=== PATIENT | male | born 1950 | race Caucasian/White ===

== ENCOUNTER 2018-02-07 13:18 | Emergency (ER) | payer MEDICARE, OTHER ==
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
[2018-02-07 14:44] VITALS: BP 168/90; PULSE 78; O2SAT 98
== END 2018-02-07 14:43 | disposition home or self-care (01) ==
LOC: ED 13:18
DX: S13.9XXA Sprain of joints and ligaments of unspecified parts of neck, initial encounter (principal); S33.9XXA Sprain of unspecified parts of lumbar spine and pelvis, initial encounter; V53.5XXA Driver of pick-up truck or van injured in collision with car, pick-up truck or van in traffic accident, initial encounter; M54.2 Cervicalgia; M54.5 Low back pain
CPT/HCPCS: 72125; 72131; 93005; 99283

== ENCOUNTER 2023-03-11 12:31 | Emergency (ER) | payer MEDICARE ==
[2023-03-11] MEDS ORDERED: SODIUM BICARBONATE 50 MEQ/50 ML ABBOJECT IV ONE (12:32)
[2023-03-11] MEDS ORDERED: Magnesium Sulfate 1 GM/2 ML VIAL IV ONE (12:32)
[2023-03-11] MEDS ORDERED: XYLOCAINE 2% HCL 20 ML MDV IJ ONE (12:32)
[2023-03-11] MEDS ORDERED: EPINEPHRINE ABBOJECT 1 MG/10 ML IV ONE ×2 (12:32)
[2023-03-11] MEDS ORDERED: XYLOCAINE 100 MG/5 ML ABBOJECT IV ONE (12:32)
[2023-03-11] MEDS ORDERED: Sodium Bicarbonate 50 MEQ/50 ML VIAL IV ONE (12:38)
[2023-03-11] MEDS ORDERED: MAGNESIUM SULF 2 G/50 ML BAG 2 GM/50 ML PIGGYBACK IV ONE (12:39)
--- NOTE | 2023-03-11 14:36 | ERPHSYRPT ---
- History of Present Illness Time Seen by Provider: 03/11/23 12:52 Source: family, EMS Exam Limitations: clinical condition Patient Subjective Stated Complaint: Cardiac Arrest Triage Nursing Assessment: Patient arrived to ER at 1230 in cardiac arrest with Igel in place and CPR being performed per EMS. EMS states they arrived at 1207 and started CPR and the monitor showed VFIB. Patient was shocked per EMS X 6. Please refer to CPR flowsheet for further information. Physician History: 73 years old with history of congestive heart failure is brought in the ER by EMS with CPR in progress. Per EMS patient was having difficulty breathing on their arrival at house, around 1207 his breathing was agonal and went into V- fib, was shocked x6, 5 rounds of epi, 450 of amiodarone and 100 mg of lidocaine was given prior to arrival with no or return of spontaneous circulation. Patient had i-gel in place with CPR in progress on presentation. CPR was continued ACLS protocol, patient initial rhythm was PEA and later on V-fib, was given more lidocaine and 2 g of magnesium with no response and patient was shocked twice with a 360 J and once double sequential defibrillation with no return of spontaneous circulation. Patient had fixed pupils. Ultrasound of her heart showed standstill heart with no cardiac activity. In the meanwhile family showed up and reported that patient wished to be DNR and requested to stop CPR. CPR was stopped per family's wishes. I do personally believe that patient downtime was long enough with no ROSC to have some kind of brain anoxia and even further continuation of CPR would have been futile. Aspirin Treatment Today: unknown Allergies/Adverse Reactions: No Known Drug Allergies Allergy (Unverified 03/11/23 13:35) Home Medications: Unobtainable 03/11/23 [History] Hx Tetanus, Diphtheria Vaccination/Date Given: No Hx Influenza Vaccination/Date Given: No Hx Pneumococcal Vaccination/Date Given: No Immunizations Up to Date: Yes Travel Risk - International Travel Have you traveled outside of the country in past 3 weeks: No - Coronavirus Screening Are you exhibiting any of the following symptoms?: No Close contact with a COVID-19 positive Pt in past 14-21 Days: No - Vaccine Status Have you recieved a Covid-19 vaccination: No - Review of Systems All Other Systems: Unable due to condition - Past Medical History Pertinent Past Medical History: Yes Respiratory History: COPD Endocrine Medical History: Diabetes Type II GI Medical History: Hernia Male Reproductive Disorders: Prostate Problems Other Medical History: Daughter states DM type 2, Enlarged heart, Hernia, Prostate problems, COPD. Patient suppose to wear home oxygen and take breathing tx but refused. - Past Surgical History Past Surgical History: No Neuro Surgical History: No Pertinent History Cardiac: No Pertinent History Respiratory: No Pertinent History Gastrointestinal: No Pertinent History Genitourinary: No Pertinent History Musculoskeletal: No Pertinent History Male Surgical History: No Pertinent History - Social History Smoking Status: Never smoker Exposure to second hand smoke: No Drug Use: none Patient Lives Alone: Yes - Nursing Vital Signs Nursing Vital Signs: Pain Scale Pain Intensity 0 - Physical Exam General Appearance: other Eye Exam: other (Fixed 5 mm pupil, no pupillary response) Ears, Nose, Throat Exam: normal ENT inspection Neck Exam: normal inspection, supple Respiratory Exam: other (No) Cardiovascular Exam: other (No palpable pulses) Gastrointestinal/Abdomen Exam: distention Extremity Exam: normal inspection, pelvis stable Neurologic Exam: other (Unconscious) Skin Exam: cyanosis SpO2 Interpretation: airway management int. SpO2: 94 O2 Delivery: Ambu-Bag Procedures - Intubation Time of Intubation: 12:33 Intubation Indications: cardiac arrest Intubation Method: glidescope Tube Size (cm): 7.5 Endotracheal Tube Confirmation: bilateral breath sounds, positive end tidal CO2, good rise & fall of chest Intubation Complications: no complications Performed By: ED Physician Post Intubation Xray: No Ordered Tests: Active Orders 24 hr Category Date Time Status CO2 Monitoring STAT Care 03/11/23 13:26 Active Intubate Patient STAT RT 03/11/23 13:26 Active Standby STAT RT 03/11/23 13:32 Active - Progress Progress: unchanged Progress Note: 03/11/23 1:58 73 years old with history of congestive heart failure is brought in the ER by EMS with CPR in progress. Per EMS patient was having difficulty breathing on their arrival at house, around 1207 his breathing was agonal and went into V- fib, was shocked x6, 5 rounds of epi, 450 of amiodarone and 100 mg of lidocaine was given prior to arrival with no or return of spontaneous circulation. Patient had i-gel in place with CPR in progress on presentation. CPR was continued ACLS protocol, promptly intubated, patient initial rhythm was PEA and later on V-fib, was given more lidocaine and 2 g of magnesium with no response and patient was shocked twice with a 360 J and once double sequential defibrillation with no return of spontaneous circulation. Patient had fixed pupils. Ultrasound of her heart showed standstill heart with no cardiac activity. In the meanwhile family showed up and reported that patient wished to be DNR and requested to stop CPR. CPR was stopped per family's wishes. I do personally be lieve that patient downtime was long enough with no ROSC to have some kind of brain anoxia and even further continuation of CPR would have been futile. Medical Desision Making - Independent Historian Additional History obtained from: Child, Linux Support Engineer/EMT - Risk of complications The pt has a high risk of morbidity or mortality based on: Decision not to resucitate - Departure Departure Disposition: Clinical Impression: Cardiac arrest Condition: Critical Care Time: No Referrals: DOCTOR,NO FAMILY [Primary Care Provider] - Follow up/PCP as directed
[2023-03-11 14:40] VITALS: O2SAT 94
== END 2023-03-11 15:20 | disposition expired ==
LOC: ED 12:31 → MERGE 12:31 → ED 15:20
DX: I46.9 Cardiac arrest, cause unspecified (principal)
CPT/HCPCS: 31500; 94799; 99282; 99285; J0171; J2001; J3475